=== PATIENT | male | born 1985 | race Caucasian/White ===

== ENCOUNTER 2016-06-18 06:15 | Emergency (ER) | payer OTHER ==
[~2016-06-18] VITALS: Ht 175.3 cm; Wt 68.2 kg
[~2016-06-18 06:15] MED LIST: ACIDOPHILUS PO; ATOXIMETIN-B1 CAP PO; CIPRO 500MG TA500 MG PO; DOXYCYCLINE 10100 MG PO; FAT ABSORB1 CAP PO; FLAGYL500 MG PO; HYOSCYAMINE0.375 M4 PO; LORTAB 5/500 501 TAB PO; MAALOX 225 MG/150 ML PO; NO HOME MEDICATIONS; PRILOSEC 20MG20 MG PO
[2016-06-18 07:12] LABS: BASO # 0.1 (0.0-0.2); BASO % 0.6 % (0.0-2.0); EOS # 0.1 (0.0-0.7); GRAN # 6.6 (1.4-6.5); GRAN % 74.8 % (42.2-75.2); HEMATOCRIT 45.8 % (42.0-52.0); HEMOGLOBIN 15.4 g/dl (13.5-18.0); LYMPH # 1.5 (1.2-3.4); MEAN CELL VOLUME 87 fl (80.0-100.0); MEAN CORPUSCULAR HEMOGLOBIN 29 pg (27.0-31.0); MEAN CORPUSCULAR HGB CONC 34 g/dl (33.0-37.0); MEAN PLATELET VOLUME 9.1 fl (7.4-10.4); MONO # 0.6 (0.1-0.6); MONO % 6.4 % (1.7-9.3); PLATELET COUNT 210 K/mm3 (130-400); RED BLOOD COUNT 5.29 M/mm3 (4.20-5.60); REDCELL DISTRIBUTION WIDTH-CV 12.4 % (11.5-14.5); WHITE BLOOD COUNT 8.9 K/mm3 (4.8-10.8)
[2016-06-18 07:25] LABS: ADJUSTED CALCIUM 9.3 mg/dL (8.4-10.2); ALBUMIN 4.7 gm/dL (3.5-5.0); BILIRUBIN,TOTAL 0.8 mg/dL (0.0-1.0); CALCIUM 9.9 mg/dL (8.4-10.2); CREATININE, serum 1.16 mg/dL (0.66-1.25); POTASSIUM 3.7 mmol/L (3.4-5.0); TOTAL PROTEIN 7.9 gm/dL (6.4-8.2)
[2016-06-18 07:48] VITALS: TEMP 98.7
[2016-06-18 08:03] LABS: PH 6 (5-8); SQUAMOUS EPITHELIAL None Seen /hpf; URINE APPEARANCE Clear; URINE BACTERIA None Seen /hpf; URINE BILIRUBIN Negative (NEGATIVE); URINE BLOOD Negative (NEGATIVE); URINE COLOR Yellow; URINE GLUCOSE Negative (NEGATIVE); URINE KETONE Negative (NEGATIVE); URINE RBC None Seen /hpf; URINE UROBILINOGEN Negative (NEGATIVE); URINE WBC 0-2 /hpf
[2016-06-18 08:15] LABS: INFLUENZA B NEGATIVE
[2016-06-18] MEDS ORDERED: ZOFRAN ODT4 MG PO (08:34)
[2016-06-18 09:00] VITALS: BP 126/72; PULSE 75
== END 2016-06-18 09:00 | disposition home or self-care (01) ==
LOC: COL.ER 06:15
PROVIDERS: Family Medicine
DX: H83.03 Labyrinthitis, bilateral (principal)
CPT/HCPCS: J2405; J2550; J7030